=== PATIENT | female | born 1995 ===

== ENCOUNTER 2019-04-15 10:03 | Inpatient (IN) | payer OTHER ==
--- NOTE | 2019-04-15 05:41 | PDOC.LDHP ---
Labor and Delivery H&P HPI: 23 y/o at 39 and 2/7 weekd for repeat . TOLAC declined. Current gestational age (weeks): 39 Due date: 04/20/19 Grav: 2 Para: 1 Current complications: none Abnormal US findings: No Current medications: pre- vitamins Previous surgical history: low tranverse CS Social history: none - Physical Exam Vital signs reviewed and normal: yes General: NAD, resting Heart: RRR Lungs: CTAB Abdomen: gravid Extremeties: no edema FHT: category 1 - Assessment L&D Assessment: scheduled repeat section - Plan Plan: admit to L&D, to OR for section
[~2019-04-15 10:03] MED LIST: Ondansetron PF 4 MG/2 ML Vial IVP PRN; Promethazine HCl 25 MG/ML VIAL IM PRN
[2019-04-15] MEDS: Lactated Ringer's 1,000 ML IV SCH ×4 (10:30→20:01)
[2019-04-15 11:07] LABS: Hemoglobin 11.1 g/dL (12.0-16.0); Mean Corpuscular HGB CONC 33.6 g/dL (32.0-36.0); Mean Corpuscular Hemoglobin 30.9 pg (27.0-31.0); Mean Corpuscular Volume 92.1 fL (78.0-98.0); Mean Platelet Volume 8.8 fL (7.4-10.4); Platelet Count 256 thou/uL (130-400); RBC Distribution Width 11.5 % (11.5-14.5); Red Blood Cell (RBC) Count 3.58 mill/uL (4.20-5.40); White Blood Cell (WBC) Count 9.6 thou/uL (4.8-10.8)
[2019-04-15 11:14] VITALS: BMI 36.3
[2019-04-15] MEDS ORDERED: Bicitra 30 ML UDCUP PO SCH (11:30)
[2019-04-15] MEDS ORDERED: hydrALAZINE 20 MG/ML VIAL SLOW IVP PRN ×2 (11:30→16:52)
[2019-04-15 11:43] LABS: HBSAg Index 0.19 S/CO (0-0.99); Hep B Surf Ag Non-Reactive S/CO (NonReactive)
[2019-04-15 11:44] LABS: Syphilis Antibody Nonreactive (Nonreactive); Syphilis Antibody Index 0.06 S/CO (<1.00 Non-Reactive)
[2019-04-15] MEDS ORDERED: MORPHINE 5 MG/10 ML PF VIAL ONE (11:59)
[2019-04-15] MEDS: CEFAZOLIN 2 GM in Premix Bag 1 BAG IVPB SCH ×2 (12:16→13:19)
[2019-04-15] MEDS ORDERED: Ketorolac Tromethamine 30 MG/ML VIAL IVP PRN (12:48)
[2019-04-15] MEDS ORDERED: Ondansetron HCl/PF 4 MG/2 ML Vial IVP PRN (12:48)
[2019-04-15] MEDS ORDERED: Naloxone HCl 0.4 mg/ml Vial IV PRN (12:48)
[2019-04-15] MEDS ORDERED: L&D-Morphine 4 MG/ML VIAL SLOW IVP PRN (12:48)
[2019-04-15] MEDS ORDERED: Meperidine HCl/PF 25 MG/ML VIAL SLOW IVP PRN (12:48)
[2019-04-15] MEDS ORDERED: Promethazine HCl 25 MG/ML VIAL IM PRN ×2 (12:48→16:52)
[2019-04-15] MEDS ORDERED: diphenhydrAMINE 50 MG/ML VIAL IVP PRN (12:48)
[2019-04-15] MEDS ORDERED: Promethazine HCl 25 MG SUPP PR PRN (12:48)
[2019-04-15] MEDS ORDERED: HYDROmorphone 2 MG/ML VIAL SLOW IVP PRN (12:48)
[2019-04-15] MEDS ORDERED: Ondansetron PF 4 MG/2 ML Vial IVP PRN ×2 (12:48→16:52)
[2019-04-15] MEDS ORDERED: Naloxone HCl 0.4 mg/ml Vial IVP PRN ×2 (12:48)
[2019-04-15] MEDS ORDERED: Ketorolac Tromethamine 30 MG/ML VIAL IVP SCH (13:00)
[2019-04-15] MEDS ORDERED: Communication Order-Pharmacy FS SCH (13:00)
[2019-04-15] MEDS ORDERED: Oxytocin 10 UNITS/ML VIAL ONE (13:08)
[2019-04-15] MEDS ORDERED: Ondansetron PF 4 MG/2 ML Vial ONE (13:08)
[2019-04-15] MEDS ORDERED: NS / Oxytocin 40 units/1000ml 1,000 ML ONE (14:03)
[2019-04-15 14:51] LABS: HIV (1/2) Antibody/Antigen Non-Reactive (NonReactive); HIV 1/2 INDEX 0.06 S/CO (<1.00)
[2019-04-15] MEDS ORDERED: Measles/Mumps/Rubella 10 MCG/0.5 ML VIAL SC ONE (16:52)
[2019-04-15] MEDS ORDERED: Misoprostol 200 MCG TAB PR PRN (16:52)
[2019-04-15] MEDS ORDERED: Methylergonovine 0.2 MG/ML VIAL IM PRN (16:52)
[2019-04-15] MEDS ORDERED: NS / Oxytocin 40 units/1000ml 1,000 ML IV SCH (16:52)
[2019-04-15] MEDS ORDERED: diphenhydrAMINE 25 MG CAP PO PRN (16:52)
[2019-04-15] MEDS ORDERED: Lanolin Ointment 7 GM TUBE TOP PRN (16:52)
[2019-04-15] MEDS ORDERED: Varicella virus, LIVE 0.5 ML VIAL SC ONE (16:52)
[2019-04-15] MEDS ORDERED: Simethicone Chewable 80 MG TAB PO PRN (16:52)
[2019-04-15] MEDS ORDERED: Bisacodyl 10 MG SUPP PR PRN (16:52)
[2019-04-15] MEDS ORDERED: Adacel (T-DAP) 0.5 ML SYRINGE IM ONE (16:52)
[2019-04-15] MEDS ORDERED: Ibuprofen 800 MG TAB PO SCH (22:00)
[2019-04-15] MEDS: Docusate Calcium (SURFAK) 240 MG CAP PO SCH (22:38)
[2019-04-16] MEDS ORDERED: HYDROcodone/Acetaminophen 5/325 mg Tablet PO PRN ×2 (01:00)
[2019-04-16] MEDS ORDERED: Zolpidem Tartrate 5 MG TAB PO PRN (01:00)
[2019-04-16 07:06] LABS: Hemoglobin 9.9 g/dL (12.0-16.0); Mean Corpuscular Hemoglobin 31.8 pg (27.0-31.0); Mean Corpuscular Volume 93.5 fL (78.0-98.0); Platelet Count 218 thou/uL (130-400); RBC Distribution Width 11.4 % (11.5-14.5); Red Blood Cell (RBC) Count 3.12 mill/uL (4.20-5.40); White Blood Cell (WBC) Count 9.9 thou/uL (4.8-10.8)
[2019-04-16] MEDS: Docusate Calcium (SURFAK) 240 MG CAP PO SCH ×2 (09:05→21:50)
[2019-04-16] MEDS: Prenatal Vitamin 1 TAB PO SCH (09:05)
[2019-04-16] MEDS: Ibuprofen 800 MG TAB PO SCH ×2 (14:35→21:50)
--- NOTE | 2019-04-16 20:54 | PDOC.PP ---
Post Progress Note Post Day #: 1 PO intake tolerated: yes Flatus: yes Ambulation: yes Vital Signs (12 hours) Temp Pulse Resp BP Pulse Ox 04/16/19 17:10 98.2 F 77 12 115/64 96 04/16/19 11:55 98.2 F 79 20 108/64 Weight Weight 225 lb - Physical Examination General: NAD Cardiovascular: no m/r/g, RRR Respiratory: clear to auscultation bilaterally Abdominal: + bowel sounds, lochia, no distention Extremities: negative homans (B) Neurological: no gross focal deficits Psychiatric: A&Ox3, normal affect (DC home tomorrow requested) Result Diagrams: 04/16/19 06:35 Additional Labs: Post Labs Blood Type A POSITIVE 04/15/19 11:26 Hep Bs Antigen Non-Reactive S/CO (NonReactive) 04/15/19 10:58
--- NOTE | 2019-04-16 22:44 | OP ---
DATE OF PROCEDURE: 04/15/2019 TIME OF SERVICE: 1258 hours, Central Standard Time. PREOPERATIVE DIAGNOSIS: Intrauterine at 39 weeks and 3 days with a scheduled repeat section in a patient who declines trial of labor after section. POSTOPERATIVE DIAGNOSIS: Intrauterine at 39 weeks and 3 days with a scheduled repeat section in a patient who declines trial of labor after section. PROCEDURE PERFORMED: Repeat second section. FINDINGS: Male infant, weighing 3881 g or 8 pounds 9 ounces. Apgars 9 and 9. QUANTITATIVE BLOOD LOSS: 608 mL. COMPLICATIONS: None. DETAILS OF THE PROCEDURE: The patient was consented and taken back to the operating room where spinal anesthesia was found to be adequate. She was then prepped and draped in the normal sterile fashion. A timeout was performed by the entire operative team. The incision was then marked with a marking pen tested using sharp pickups. An incision was then made with a scalpel. The incision was carried through the adipose tissue down to the underlying rectus fascia using both sharp dissection as well as cautery. Once the fascia was identified, it was incised in the midline and then the fascial incision was carried through in both lateral directions using sharp as well as cautery dissection techniques. Next, the superior aspect of the rectus fascia was grasped with 2 Chriss clamps, which was tented up and the rectus muscles were dissected off using blunt dissection as well as cautery dissection. Similarly, the inferior aspect of the fascial incision was grasped with 2 Chriss clamps, tented up and the rectus muscles were dissected off bluntly as well as sharply. Next, the rectus muscles were in the midline and the peritoneum identified. The peritoneum was then carefully grasped with 2 hemostats and entered sharply. The peritoneal incision was extended superiorly and inferiorly and bladder blade was placed in the lower abdomen. At this point, the uterus was identified and the bladder flap was then developed using pickups with teeth as well as Metzenbaum scissors in both lateral directions. The bladder flap was then dissected downwards using the cash register operator's finger as well as Metzenbaum scissors. The bladder blade was replaced. The lower uterine segment was then identified and entered sharply using a clean scalpel. The uterine incision was then dissected downwards until thin layer of muscle remained and this was entered bluntly using a hemostat to avoid any injury to the baby. The uterine incision was then stretched using two fingers in both lateral directions. An amniotomy was performed artificially using a hemostat and the baby was delivered using fundal pressure in a gentle fashion. Once out, the baby's mouth and nose were bulb suctioned, cord clamped and cut, and the baby was handed to waiting attendants. Next, the uterus was exteriorized, cleared of all clots and debris and the uterine incision was repaired with #1 Monocryl in a running locking fashion. A 2nd suture of the same type was used to obtain complete hemostasis at the uterine incision. The bladder flap was reapproximated using 3-0 Monocryl. Next, patient's left and right adnexa were inspected and appeared to be within normal limits. The posterior cul-de-sac was blotted dry and hemostasis assured. One more look at the uterine incision demonstrated hemostasis. Next, the uterus was replaced back within the abdomen. The peritoneum was reapproximated using 2-0 Monocryl without difficulty. The rectus muscles were then allowed to come back together and 0 chromic was used to aid in reapproximation of the muscle as necessary. The rectus fascia was then reapproximated in a running fashion using 0 Vicryl suture. The adipose tissue was then examined and appeared to be well approximated without any obvious separations. Finally, the skin was reapproximated with 3-0 Monocryl on a Silas needle without difficulty and Dermabond adhesive was applied to the skin. Once the glue was dry, the drapes were removed and the patient was transferred to an ambulatory bed where she was taken to recovery awake and in stable condition. Sponge, lap, and needle counts were correct x3. Job ID: [id number]
[2019-04-17] MEDS: Ibuprofen 800 MG TAB PO SCH ×2 (05:20→12:38)
[2019-04-17] MEDS: Docusate Calcium (SURFAK) 240 MG CAP PO SCH (08:29)
[2019-04-17] MEDS: Prenatal Vitamin 1 TAB PO SCH (08:29)
[2019-04-17 13:38] VITALS: BP 109/52; TEMP 98.2
== END 2019-04-17 12:50 | disposition home or self-care (01) | DRG 788 ==
LOC: L&D-LIB 10:03 → L&D 11:58 → 3SW 16:35
PROVIDERS: ADMIT Obstetrics & Gynecology; ATTEND Obstetrics & Gynecology
PROC: 10D00Z1 Extraction of Products of Conception, Low, Open Approach (ICD-10-PCS; principal; 2019-04-15)
DX: O34.211 Maternal care for low transverse scar from previous cesarean delivery (principal); Z3A.39 39 weeks gestation of pregnancy; Z37.0 Single live birth
CPT/HCPCS: 36415; 51702; 85027; 86780; 86850; 86900; 86901; 87340; 87389; J0690; J1885; J2274; J2405; J2590

== ENCOUNTER 2019-04-25 01:18 | Emergency (ER) | payer OTHER | END 2019-04-25 02:10 | disposition home or self-care (01) | LOC: ERS 01:18 | DX: O90.0 Disruption of cesarean delivery wound (principal) ==